=== PATIENT | female | born 1985 | race Caucasian/White ===

== ENCOUNTER 2018-08-05 00:30 | Emergency (ER) | payer BC ==
[2018-08-05 00:45] VITALS: BP 102/69
[2018-08-05] MEDS ORDERED: Sodium Chloride 0.9% 1,000 ML IV ONE ×2 (00:55→01:22)
--- NOTE | 2018-08-05 01:49 | EDM.PDOC ---
ED HPI GENERAL MEDICAL PROBLEM - General Chief Complaint: Gastrointestinal Problem Stated Complaint: VOMITING/DIARRHEA Time Seen by Provider: 08/05/18 00:47 Source of Information: Reports: Patient History Limitations: Reports: No Limitations - History of Present Illness INITIAL COMMENTS - FREE TEXT/NARRATIVE: This is a 33-year-old female. Starting early yesterday afternoon she had onset of nausea vomiting and diarrhea. She's been having abdominal cramps as well. No fever no chills no cough no congestion no sore throat. She denies any urinary symptoms or difficulty in urination. She was feeling a little lightheaded when she came to the ER. She says she's had no blood in the vomitus and no blood in the diarrhea because is been mostly clear. She denies any other acute symptoms at this time. 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 Denies: Fever, Chills HEENT: Reports: No Symptoms Respiratory: Reports: No Symptoms Cardiovascular: Reports: No Symptoms Endocrine: Reports: No Symptoms GI/Abdominal: Reports: Abdominal Pain, Diarrhea, Nausea, Vomiting. Denies: Bloody Stool, Hematemesis : Denies: Discharge, Dysuria, Flank Pain Musculoskeletal: Reports: No Symptoms, Back Pain Skin: Reports: No Symptoms Neurological: Reports: No Symptoms Psychiatric: Reports: No Symptoms Hematologic/Lymphatic: Reports: No Symptoms ED EXAM, GI/ABD - Physical Exam Exam: See Below Exam Limited By: No Limitations General Appearance: Alert, WD/WN, No Apparent Distress Eyes: Bilateral: Normal Appearance Ears: Normal External Exam Nose: Normal Inspection Throat/Mouth: Normal Inspection, Normal Lips, Normal Voice, No Airway Compromise Head: Normocephalic Neck: Supple Respiratory/Chest: No Respiratory Distress, Lungs Clear, Normal Breath Sounds Cardiovascular: Regular Rate, Rhythm, No Murmur GI/Abdominal Exam: Soft, Other (Generalized soreness of the abdomen but she is nontender nondistended and nonrigid no rebound noted) Back Exam: Normal Inspection Extremities: Normal Inspection, Normal Range of Motion Neurological: Alert, Oriented Psychiatric: Normal Affect, Normal Mood Skin Exam: Warm, Dry Course - Vital Signs Last Recorded V/S: Last Vital Signs Temp 98.6 F 08/05/18 00:41 Pulse 89 08/05/18 00:41 Resp 16 08/05/18 00:41 BP 102/69 08/05/18 00:41 Pulse Ox 99 08/05/18 00:41 Orthostatic Blood Pressure [ 96/70 Supine] Orthostatic Blood Pressure [ 98/70 Standing] - Orders/Labs/Meds Labs: Laboratory Tests 08/05/18 08/05/18 08/05/18 Range/Units 00:50 00:50 00:50 WBC 7.47 (3.98-10.04) K/mm3 RBC 4.91 (3.98-5.22) M/mm3 Hgb 13.8 (11.2-15.7) gm/L Hct 42.7 (34.1-44.9) % MCV 87.0 (79.4-94.8) fl MCH 28.1 (25.6-32.2) pg MCHC 32.3 (32.2-35.5) g/dl RDW Std Deviation 42.6 (36.4-46.3) fL Plt Count 275 (182-369) K/mm3 MPV 10.6 (9.4-12.3) fl Neut % (Auto) 86.9 H (34.0-71.1) % Lymph % (Auto) 5.8 L (19.3-51.7) % [place] % (Auto) 6.6 (4.7-12.5) % Eos % (Auto) 0.4 L (0.7-5.8) Baso % (Auto) 0.3 (0.1-1.2) % Neut # (Auto) 6.50 H (1.56-6.13) K/mm3 Lymph # (Auto) 0.43 L (1.18-3.74) K/mm3 [place] # (Auto) 0.49 H (0.24-0.36) K/mm3 Eos # (Auto) 0.03 L (0.04-0.36) K/mm3 Baso # (Auto) 0.02 (0.01-0.08) K/mm3 Manual Slide Review Abnormal smear Sodium 140 (136-145) mEq/L Potassium 4.0 (3.5-5.1) mEq/L Chloride 104 (98-107) mEq/L Carbon Dioxide 24 (21-32) mEq/L Anion Gap 16.0 H (5-15) BUN 10 (7-18) mg/dL Creatinine 0.7 (0.55-1.02) mg/dL Est Cr Clr Drug Dosing 100.55 mL/min Estimated GFR (MDRD) > 60 (>60) mL/min BUN/Creatinine Ratio 14.3 (14-18) Glucose 131 H (74-106) mg/dL Calcium 9.3 (8.5-10.1) mg/dL Total Bilirubin 0.6 (0.2-1.0) mg/dL AST 17 (15-37) U/L ALT 23 (14-59) U/L Alkaline Phosphatase 85 (46-116) U/L Total Protein 8.0 (6.4-8.2) g/dl Albumin 4.2 (3.4-5.0) g/dl Globulin 3.8 gm/dL Albumin/Globulin Ratio 1.1 (1-2) Lipase 75 (73-393) U/L HCG, Qual Negative (NEGATIVE) Urine Color (Yellow) Urine Appearance (Clear) Urine pH (5.0-8.0) Ur Specific [place] (1.005-1.030) Urine Protein (Negative) Urine Glucose (UA) (Negative) Urine Ketones (Negative) Urine Occult Blood (Negative) Urine Nitrite (Negative) Urine Bilirubin (Negative) Urine Urobilinogen (0.2-1.0) Ur Leukocyte Esterase (Negative) Urine RBC (0-5) /hpf Urine WBC (0-5) /hpf Ur Epithelial Cells (0-5) /hpf Urine Bacteria (FEW) /hpf Urine Mucus (FEW) /hpf 08/05/18 Range/Units 02:00 WBC (3.98-10.04) K/mm3 RBC (3.98-5.22) M/mm3 Hgb (11.2-15.7) gm/L Hct (34.1-44.9) % MCV (79.4-94.8) fl MCH (25.6-32.2) pg MCHC (32.2-35.5) g/dl RDW Std Deviation (36.4-46.3) fL Plt Count (182-369) K/mm3 MPV (9.4-12.3) fl Neut % (Auto) (34.0-71.1) % Lymph % (Auto) (19.3-51.7) % [place] % (Auto) (4.7-12.5) % Eos % (Auto) (0.7-5.8) Baso % (Auto) (0.1-1.2) % Neut # (Auto) (1.56-6.13) K/mm3 Lymph # (Auto) (1.18-3.74) K/mm3 [place] # (Auto) (0.24-0.36) K/mm3 Eos # (Auto) (0.04-0.36) K/mm3 Baso # (Auto) (0.01-0.08) K/mm3 Manual Slide Review Sodium (136-145) mEq/L Potassium (3.5-5.1) mEq/L Chloride (98-107) mEq/L Carbon Dioxide (21-32) mEq/L Anion Gap (5-15) BUN (7-18) mg/dL Creatinine (0.55-1.02) mg/dL Est Cr Clr Drug Dosing mL/min Estimated GFR (MDRD) (>60) mL/min BUN/Creatinine Ratio (14-18) Glucose (74-106) mg/dL Calcium (8.5-10.1) mg/dL Total Bilirubin (0.2-1.0) mg/dL AST (15-37) U/L ALT (14-59) U/L Alkaline Phosphatase (46-116) U/L Total Protein (6.4-8.2) g/dl Albumin (3.4-5.0) g/dl Globulin gm/dL Albumin/Globulin Ratio (1-2) Lipase (73-393) U/L HCG, Qual (NEGATIVE) Urine Color Yellow (Yellow) Urine Appearance Slt cloudy H (Clear) Urine pH 5.5 (5.0-8.0) Ur Specific [place] > or = 1.030 (1.005-1.030) Urine Protein Trace H (Negative) Urine Glucose (UA) Negative (Negative) Urine Ketones 3+ H (Negative) Urine Occult Blood Negative (Negative) Urine Nitrite Negative (Negative) Urine Bilirubin 1+ H (Negative) Urine Urobilinogen 0.2 (0.2-1.0) Ur Leukocyte Esterase Negative (Negative) Urine RBC 0-5 (0-5) /hpf Urine WBC 0-5 (0-5) /hpf Ur Epithelial Cells 0-5 (0-5) /hpf Urine Bacteria Few (FEW) /hpf Urine Mucus Many H (FEW) /hpf Meds: Medications Discontinued Medications Generic Name Dose Route Start Last Admin Trade Name Michael PRN Reason Stop Dose Admin Sodium Chloride 1,000 mls @ 999 mls/hr 08/05/18 00:55 08/05/18 01:00 Normal Saline IV 08/05/18 01:55 999 mls/hr ONETIME ONE Administration Sodium Chloride 1,000 mls @ 999 mls/hr 08/05/18 01:22 08/05/18 01:25 Normal Saline IV 08/05/18 02:22 999 mls/hr ONETIME ONE Administration - Re-Assessments/Exams Free Text/Narrative Re-Assessment/Exam: 08/05/18 02:56 The patient is feeling much better after 2 L of fluid. She is no longer nauseated she has not had any bowel movement since she's been here and she wants to go home she denies any more abdominal cramping. I spoke to her about the blood work and urinalysis which were all within normal limits. Departure - Departure Time of Disposition: 02:56 Disposition: Home, Self-Care 01 Condition: Good Clinical Impression: Abdominal cramps Nausea and vomiting Qualifiers: Vomiting type: unspecified Vomiting Intractability: non-intractable Qualified Code(s): R11.2 - Nausea with vomiting, unspecified Diarrhea Qualifiers: Diarrhea type: unspecified type Qualified Code(s): R19.7 - Diarrhea, unspecified - Discharge Information *PRESCRIPTION DRUG MONITORING PROGRAM REVIEWED*: Not Applicable *COPY OF PRESCRIPTION DRUG MONITORING REPORT IN PATIENT JENNIFER: Not Applicable Prescriptions: Ondansetron [Zofran ODT] 4 mg PO Q6H PRN #12 tab.dis PRN Reason: Nausea Instructions: Nausea and Vomiting, Adult Referrals: PCP,None [Primary Care Provider] - Forms: ED Department Discharge Additional Instructions: Use Zofran as needed for nausea, today stick to liquids only like water and Gatorade and juices, on Monday you may have toast crackers bananas yogurt and easy to digest foods, no meats or vegetables or cheese for at least 3-4 days, rest and sleep as much as possible today, follow-up with your family doctor as needed or return to the ER if your symptoms worsen
== END 2018-08-05 03:05 | disposition home or self-care (01) ==
LOC: JD.ED 00:30
DX: R11.2 Nausea with vomiting, unspecified (principal); R19.7 Diarrhea, unspecified; R10.9 Unspecified abdominal pain
CPT/HCPCS: 36415; 80053; 81001; 83690; 84703; 85025; 96360; 99283; J7040

== ENCOUNTER 2018-12-18 06:37 | Day surgery (SDC) | payer BC ==
[~2018-12-18 06:37] MED LIST: Lactated Ringers 1,000 ML IV SCH; Lidocaine 1%/Sod Bicarbonate in NS 8.4% 1 ML Syringe IDERM PRN; Sodium Chloride 0.9% 10 ML Syringe FLUSH PRN
--- NOTE | 2018-12-18 07:11 | PCM.PREANE ---
Preanesthetic Assessment - Anesthesia/Transfusion/Family Hx Anesthesia History: Prior Anesthesia Without Reaction Family History of Anesthesia Reaction: No Transfusion History: No Prior Transfusion(s) - Review of Systems General: No Symptoms Pulmonary: No Symptoms Cardiovascular: No Symptoms Gastrointestinal: No Symptoms Neurological: No Symptoms Other: Reports: None - Physical Assessment NPO Status Date: 12/17/18 NPO Status Time: 00:00 Pulse: 77 O2 Sat by Pulse Oximetry: 98 Respiratory Rate: 16 Blood Pressure: 102/72 Temperature: 36.7 C Vital Signs: Last Vital Signs Temp 36.7 C 12/18/18 06:45 Pulse 77 12/18/18 06:45 Resp 16 12/18/18 06:45 BP 102/72 12/18/18 06:45 Pulse Ox 98 12/18/18 06:45 Height: 1.63 m Weight: 65.816 kg ASA Class: 2 Mental Status: Alert & Oriented x3 Airway Class: Mallampati = 1 Dentition: Reports: Normal Dentition Thyro-Mental Finger Breadths: 3 Mouth Opening Finger Breadths: 3 ROM/Head Extension: Full Lungs: Clear to Auscultation, Normal Respiratory Effort Cardiovascular: Regular Rate, Regular Rhythm - Lab Values: Laboratory Last Values WBC 5.41 K/mm3 (3.98-10.04) 12/13/18 09:22 RBC 4.70 M/mm3 (3.98-5.22) 12/13/18 09:22 Hgb 13.6 gm/L (11.2-15.7) 12/13/18 09:22 Hct 41.1 % (34.1-44.9) 12/13/18 09:22 MCV 87.4 fl (79.4-94.8) 12/13/18 09:22 MCH 28.9 pg (25.6-32.2) 12/13/18 09:22 MCHC 33.1 g/dl (32.2-35.5) 12/13/18 09:22 RDW Std Deviation 41.2 fL (36.4-46.3) 12/13/18 09:22 Plt Count 299 K/mm3 (182-369) 12/13/18 09:22 MPV 10.2 fl (9.4-12.3) 12/13/18 09:22 Neut % (Auto) 47.3 % (34.0-71.1) 12/13/18 09:22 Lymph % (Auto) 39.7 % (19.3-51.7) 12/13/18 09:22 [place] % (Auto) 10.9 % (4.7-12.5) 12/13/18 09:22 Eos % (Auto) 1.5 (0.7-5.8) 12/13/18 09:22 Baso % (Auto) 0.6 % (0.1-1.2) 12/13/18 09:22 Neut # (Auto) 2.56 K/mm3 (1.56-6.13) 12/13/18 09:22 Lymph # (Auto) 2.15 K/mm3 (1.18-3.74) 12/13/18 09:22 [place] # (Auto) 0.59 K/mm3 (0.24-0.36) H 12/13/18 09:22 Eos # (Auto) 0.08 K/mm3 (0.04-0.36) 12/13/18 09: Baso # (Auto) 0.03 K/mm3 (0.01-0.08) 12/13/18 09:22 Urine Color Light yellow (Yellow) 12/13/18 09: Urine Appearance Clear (Clear) 12/13/18 09: Urine pH 7.0 (5.0-8.0) 12/13/18 09: Ur Specific [place] 1.015 (1.005-1.030) 12/13/18 09:22 Urine Protein Negative (Negative) 12/13/18 09: Urine Glucose (UA) Negative (Negative) 12/13/18 09: Urine Ketones Negative (Negative) 12/13/18 09: Urine Occult Blood Negative (Negative) 12/13/18 09: Urine Nitrite Negative (Negative) 12/13/18 09: Urine Bilirubin Negative (Negative) 12/13/18 09: Urine Urobilinogen 0.2 (0.2-1.0) 12/13/18 09:22 Ur Leukocyte Esterase Negative (Negative) 12/13/18 09:22 Urine RBC 0-5 /hpf (0-5) 12/13/18 09:22 Urine WBC 0-5 /hpf (0-5) 12/13/18 09:22 Ur Epithelial Cells 0-5 /hpf (0-5) 12/13/18 09:22 Urine Bacteria Few /hpf (FEW) 12/13/18 09:22 Urine Mucus Few /hpf (FEW) 12/13/18 09:22 Urine HCG, Qual Negative (NEGATIVE) 12/13/18 09:22 - Allergies Allergies/Adverse Reactions: Allergies Allergy/AdvReac Type Severity Reaction Status Date / Time No Known Allergies Allergy Verified 12/17/18 11:13 - Blood Blood Available: No Product(s) Available: None - Anesthesia Plan Pre-Op Medication Ordered: None - Acknowledgements Anesthesia Type Planned: General Anesthesia Pt an Appropriate Candidate for the Planned Anesthesia: Yes Alternatives and Risks of Anesthesia Discussed w Pt/Guardian: Yes Pt/Guardian Understands and Agrees with Anesthesia Plan: Yes PreAnesthesia Questionnaire - Past Health History Medical/Surgical History: Denies Medical/Surgical History Cardiovascular History: Reports: None Respiratory History: Reports: None Gastrointestinal History: Reports: GERD, Other (See Below) Other Gastrointestinal History: Heartburn with Genitourinary History: Reports: None INTERNAL REVIEW AND AUDIT COMPLIANCE History: Reports: , Other (See Below) Other OB/BYN History: dysmenorrhea, menorrhagia, Musculoskeletal History: Reports: None Neurological History: Reports: None Psychiatric History: Reports: None Endocrine/Metabolic History: Reports: None Hematologic History: Reports: None Immunologic History: Reports: None Oncologic (Cancer) History: Reports: None Dermatologic History: Reports: None - Infectious Disease History Infectious Disease History: Reports: Chicken Pox - Past Surgical History Head Surgeries/Procedures: Reports: None HEENT Surgical History: Reports: Oral Surgery, Tonsillectomy Cardiovascular Surgical History: Reports: None Respiratory Surgical History: Reports: None GI Surgical History: Reports: None Female Surgical History: Reports: None Male Surgical History: Reports: None Endocrine Surgical History: Reports: None Neurological Surgical History: Reports: None Musculoskeletal Surgical History: Reports: None Oncologic Surgical History: Reports: None Dermatological Surgical History: Reports: None - SUBSTANCE USE Smoking Status *Q: Former Smoker Tobacco Use Within Last Twelve Months: No Second Hand Smoke Exposure: No Days Per Week of Alcohol Use: 1 Number of Drinks Per Day: 0 Total Drinks Per Week: 0 Recreational Drug Use History: No - HOME MEDS Home Medications: Home Meds . [No Known Home Meds] 12/17/18 [History] - CURRENT (IN HOUSE) MEDS Current Meds: Current Medications Lactated Ringer's (Ringers, Lactated) 1,000 mls @ 125 mls/hr IV ASDIRECTED SUMA Stop: 12/18/18 23:00 Lidocaine/Sodium Bicarbonate (Buffered Lidocaine 1% In Ns 8.4%) 0.25 ml IDERM ONETIME PRN PRN Reason: Prior to IV Start Stop: 12/18/18 18:00 Sodium Chloride (Saline Flush) 10 ml FLUSH ASDIRECTED PRN PRN Reason: Keep Vein Open Stop: 12/18/18 18:00
[2018-12-18] MEDS ORDERED: Rocuronium 50 MG/5 ML Vial ONE (07:16)
[2018-12-18] MEDS ORDERED: Ondansetron 4 MG/2 ML SDV ONE (07:16)
[2018-12-18] MEDS ORDERED: Propofol 200 MG/20 ML SDV ONE (07:17)
[2018-12-18] MEDS ORDERED: Lidocaine 1% 4 ML ONE (07:17)
[2018-12-18] MEDS ORDERED: Midazolam 1 MG/ML 2 ML SDV ONE (07:17)
[2018-12-18] MEDS ORDERED: ceFAZolin 1 GM Vial ONE (07:17)
[2018-12-18] MEDS ORDERED: fentaNYL 250 MCG/5 ML SDV ONE (07:17)
[2018-12-18] MEDS ORDERED: Ketorolac 30 MG/ML SDV ONE (07:46)
[2018-12-18] MEDS ORDERED: Lactated Ringers 1,000 ML ONE (07:49)
[2018-12-18] MEDS ORDERED: Ibuprofen 600 MG Tab PO PRN (08:03)
[2018-12-18] MEDS ORDERED: Ondansetron 4 MG/2 ML SDV IVPUSH PRN (08:03)
--- NOTE | 2018-12-18 08:12 | PCM.OPNOTE ---
- General Post-Op/Procedure Note Date of Surgery/Procedure: 12/18/18 Operative Procedure(s): Hysteroscopy, dilation curettage, NovaSure endometrial ablation Findings: Uterus sounded to 9-1/2 cm. Cervix 3 cm in length. No abnormalities noted within the endometrial cavity. No adnexal abnormalities noted on exam under anesthesia. Pre Op Diagnosis: 1. Menorrhagia. 2. Dysmenorrhea Post-Op Diagnosis: Same Anesthesia Technique: General ET Tube Primary Surgeon: Lucas Conway Secondary Surgeon: Basil Barrios Anesthesia Provider: Johan Montejo Vegetable Buncher: Nenita Christie Fluid Replacement, Intraop: 1,000 EBL in mLs: 5 Complications: None Condition: Good Free Text/Narrative:: Surgery duration: 21 minutes Procedure: The patient is taking the operative placed in a supine position on the operating table. She received 2 g of Ancef preoperatively for infection prophylaxis and had sequential compression stockings in place for DVT prophylaxis. Patient was given general anesthesia and endotracheal tube was placed for ventilation. She is placed in a dorsal lithotomy position and prepped and draped in usual fashion. An exam under anesthesia was performed. Findings as described above. A weighted speculum was placed in the vagina. Cervix is visualized. It was grasped anteriorly with a single-tooth tenaculum. Uterus was then sounded to a depth of 9-1/2 cm. It is from the anterior, mid position. The cervix was dilated to entrance of a 5 mm 30 rigid hysteroscope. This was placed without problem and normal saline was used as a distending medium. The endometrial cavity was visualized. Findings as described above. After this is performed a D& C was performed. Moderate amount tissue was obtained. Minimal bleeding was encountered. Endometrial ablation was then performed. Should be noted consent was appropriately signed by the patient prior to the procedure. The cervix was dilated to allow placement of the NovaSure endometrial apparatus. Uterine cavity was 6/2 cm in length, cervix 3 cm in length and width of the endometrial cavity was 4.5 cm. Power was 161. The NovaSure device was set to 6.5 centimeters. The endometrial cavity with setting was at 4.5 cm. Uterine cavity integrity check was then performed, was successful and the endometrial cavity was then ablated. Energy was 161. The ablation took approximately 1-1/2 minutes. The array was collapsed and the apparatus was removed. Hysteroscope was then placed back into the endometrial cavity. Blood was flushed out and the findings were consistent with a cauterized endometrial cavity. At this point the scope was removed. The vagina was cleared of old blood , the cervix was released and the weighted speculum was removed. Patient was returned to supine position and awakened from general anesthesia. She tolerated the procedure well and operating room in good condition.
[2018-12-18] MEDS ORDERED: Ketorolac 30 MG/ML SDV IVPUSH SCH (08:15)
[2018-12-18] MEDS ORDERED: fentaNYL 100 MCG/2 ML SDV IVPUSH PRN (08:31)
--- NOTE | 2018-12-18 08:39 | PCM.POSTAN ---
POST ANESTHESIA ASSESSMENT - MENTAL STATUS Mental Status: Alert, Oriented - VITAL SIGNS Pulse Rate: 89 SaO2: 99 Resp Rate: 18 Blood Pressure: 102/80 Temperature: 36.6 C - RESPIRATORY Respiratory Status: Respiratory Rate WNL, Airway Patent, O2 Saturation Stable, Supplemental Oxygen - CARDIOVASCULAR CV Status: Pulse Rate WNL, Blood Pressure Stable - GASTROINTESTINAL GI Status: No Symptoms - PAIN Pain Score: 0 - POST OP HYDRATION Hydration Status: Adequate & Stable - OBSERVATIONS Free Text/Narrative:: no anesthesia complications noted
[2018-12-18 10:24] VITALS: BP 98/76
== END 2018-12-18 10:16 | disposition home or self-care (01) ==
LOC: JD.SDS 06:37
PROVIDERS: ATTEND Obstetrics & Gynecology
DX: N92.0 Excessive and frequent menstruation with regular cycle (principal); N94.6 Dysmenorrhea, unspecified; N85.8 Other specified noninflammatory disorders of uterus; K21.9 Gastro-esophageal reflux disease without esophagitis; Z87.891 Personal history of nicotine dependence
CPT/HCPCS: 36415; 58563; 81001; 81025; 85025; J0690; J1885; J2001; J2250; J2405; J2704; J3010; J7120; 00840

== ENCOUNTER 2024-01-05 03:24 | Emergency (ER) | payer BC ==
[2024-01-05 03:39] VITALS: PULSE 86
[2024-01-05] MEDS: diphenhydrAMINE 50 MG Cap PO ONE (03:56)
[2024-01-05] MEDS: Dexamethasone 4 MG/ML 5 ML MDV PO ONE (03:56)
[2024-01-05 04:04] VITALS: BP 112/66
== END 2024-01-05 04:07 | disposition home or self-care (01) ==
LOC: JD.ED 03:24
DX: T78.40XA Allergy, unspecified, initial encounter (principal)
CPT/HCPCS: 99283; J8540; Q0163